=== PATIENT | female | born 1980 ===

== ENCOUNTER 2024-07-15 10:24 | Emergency (ER) | payer BC, MEDICAID ==
[2024-07-15] MEDS ORDERED: Sodium Chloride 0.9% 10 ML Syringe FLUSH PRN (10:32)
[2024-07-15] MEDS: LORazepam 2 MG/ML SDV IVPUSH ONE ×2 (10:32→10:53)
[2024-07-15] MEDS: Ondansetron 4 MG/2 ML SDV IVPUSH ONE (10:33)
[2024-07-15 10:46] LABS: EOSINOPHILS PERCENT AUTO 0.2 % (0.0-4.0); HEMATOCRIT 44.7 % (33.0-47.0); HEMOGLOBIN 16.3 g/dL (12.0-16.0); IMMATURE GRAN ABSOLUTE AUTO 0.06 x10^3/uL (0.00-0.07); LYMPHOCYTES ABSOLUTE AUTO 2.9 x10^3/uL (1.0-4.8); LYMPHOCYTES PERCENT AUTO 19.2 % (25.0-50.0); MEAN CORPUSCULAR HEMOGLOBIN 30.8 pg (26.0-32.0); MEAN CORPUSCULAR HGB CONC 36.5 g/dL (32.0-36.0); MEAN CORPUSCULAR VOLUME 84.3 fL (78.0-93.0); MONOCYTES ABSOLUTE AUTO 0.8 x10^3/uL (0.0-0.8); MONOCYTES PERCENT AUTO 5.1 % (2.0-11.0); NEUTROPHILS ABSOLUTE AUTO 11.3 x10^3/uL (1.8-7.7); NEUTROPHILS PERCENT AUTO 75.1 % (50.0-80.0); PLATELET COUNT,PLT 330 x10^3/uL (130-400)
[2024-07-15 11:09] LABS: A/G RATIO 1.26; ALANINE AMINOTRANSFERASE,ALT 26 U/L (14-59); ALBUMIN 4.3 g/dL (3.4-5.0); ALKALINE PHOSPHATASE 55 U/L (46-116); ASPARTATE AMNIOTRANSFERASE,AST 11 U/L (15-37); BILIRUBIN TOTAL 0.9 mg/dL (0.2-1.0); BLOOD UREA NITROGEN,BUN 17 mg/dL (7-18); CALCIUM 9.4 mg/dL (8.5-10.1); CARBON DIOXIDE,CO2 21 mmol/L (21-32); CHLORIDE,CL 102 mmol/L (98-107); CREATININE 0.9 mg/dL (0.55-1.02); GLUCOSE RANDOM 114 mg/dL (70-99); MAGNESIUM 1.9 mg/dL (1.8-2.4); POTASSIUM,K 3.2 mmol/L (3.5-5.1); PROTEIN TOTAL,TP 7.7 g/dL (6.4-8.2); SODIUM,NA 141 mmol/L (136-145)
[2024-07-15 11:10] LABS: ANION GAP 21.2 mmol/L (5-15); ESTIMATED GFR 82 mL/min (>=60)
[2024-07-15] MEDS: Ketorolac 15 MG/ML SDV IVPUSH ONE (11:11)
[2024-07-15] MEDS: Iopamidol 612 MG/ML 100 ML Bottle IVPUSH ONE (11:32)
[2024-07-15 11:49] LABS: APPEARANCE,URINE CLOUDY (CLEAR); BILIRUBIN,URINE NEGATIVE (NEGATIVE); COLOR,URINE YELLOW (YELLOW); GLUCOSE,URINE NEGATIVE (NEGATIVE); KETONES,URINE NEGATIVE (NEGATIVE); LEUKOCYTE ESTERASE,URINE NEGATIVE (NEGATIVE); NITRITE,URINE NEGATIVE (NEGATIVE); OCCULT BLOOD,URINE NEGATIVE (NEGATIVE); PH,URINE 7.5 (5.0-8.0); PROTEIN,URINE 30 mg/dL (NEGATIVE); UROBILINOGEN,URINE 0.2 EU/dL (0.2)
[2024-07-15 11:56] LABS: AMORPHOUS SEDIMENT,URINE MANY; BACTERIA,URINE MODERATE /HPF (NOT SEEN); RBC,URINE 0-5 /HPF (NOT SEEN); SQUAMOUS EPITHELIAL CELLS,UR FEW /HPF (NOT SEEN); WBC,URINE 0-5 /HPF (NOT SEEN)
[2024-07-15 12:38] VITALS: PULSE 53
[2024-07-15 12:39] VITALS: BP 135/81
== END 2024-07-15 12:23 | disposition home or self-care (01) ==
LOC: VM.ED 10:24
DX: F41.9 Anxiety disorder, unspecified (principal); R06.02 Shortness of breath; R06.4 Hyperventilation; T50.5X5A Adverse effect of appetite depressants, initial encounter; Z79.899 Other long term (current) drug therapy; Z88.0 Allergy status to penicillin; Z88.1 Allergy status to other antibiotic agents
CPT/HCPCS: 36415; 74177; 80053; 81001; 81025; 83735; 84484; 85025; 87428-QW; 93005; 93010; 96374; 96375; 96376; 99284; 99285-25; J1885; J2060; J2405; Q9967